=== PATIENT | male | born 1970 | race Caucasian/White ===

== ENCOUNTER 2016-11-02 10:25 | Day surgery (SDC) | payer BC ==
[2016-11-02] MEDS ORDERED: MIDAZOLAM HCL 2MG/2ML VIAL IV ONE (14:00)
[2016-11-02] MEDS ORDERED: PROPOFOL 10 MG/ML VIAL IV ONE (14:00)
[2016-11-02] MEDS ORDERED: LIDOCAINE 2% MDV (20MG/ML) 20ML VIAL IV ONE (14:00)
--- NOTE | 2016-11-06 10:34 | Operative Note ---
DATE OF SURGERY: 11/02/2016 OPERATION: COLONOSCOPY. PREOPERATIVE DIAGNOSIS: Family history of colon cancer in a second-degree relative. POSTOPERATIVE DIAGNOSIS: Sigmoid diverticulosis and anorectal nodule. PROCEDURE: After informed consent was obtained from the patient, he was placed in the left lateral decubitus position in the endoscopy suite, sedated and monitored by the department of anesthesia. Digital rectal exam revealed a small palpable nodule of unclear significance. A well-lubricated CF160 AL colonoscope was inserted into the rectum and advanced to the cecum. Preparation quality was good. The ileocecal valve, appendiceal orifice, cecal cap, ascending colon, transverse colon, and descending colon were unremarkable. The sigmoid colon revealed scattered diverticula but no inflammation or polyps or mass lesions were seen. The rectum was unremarkable in forward views. The J-turn views demonstrated an anorectal nodule perhaps indicating a hypertrophied anal papilla versus a neoplasm abnormality. The endoscope was straightened, the rectal ampulla deflated, and the endoscope was removed. RECOMMENDATIONS: The patient should follow a high-fiber diet. I would recommend a repeat exam in 10 years. In addition, I will be referring him to Colorectal Surgery for an evaluation of this nodule for possible need for removal. As always, thank you for allowing me to participate in the healthcare of your patients. CC: ARIANNA CARTWRIGHT D.O. MIKIE
== END 2016-11-02 12:42 | disposition home or self-care (01) ==
LOC: HOP 10:25
PROVIDERS: ATTEND Internal Medicine Gastroenterology
DX: Z12.11 Encounter for screening for malignant neoplasm of colon (principal); K57.30 Diverticulosis of large intestine without perforation or abscess without bleeding; K62.89 Other specified diseases of anus and rectum
CPT/HCPCS: 00810; G0121

== ENCOUNTER 2017-11-10 11:25 | Emergency (ER) | payer BC ==
[2017-11-10] MEDS ORDERED: KETOROLAC 30 MG/ML VIAL IVP ONE (11:29)
[2017-11-10] MEDS ORDERED: ONDANSETRON HCL IV 4 MG/2 ML VIAL IV ONE (11:29)
[2017-11-10 11:47] LABS: BASO % 0.1 % (0-6); EOS % 0.1 % (0-6); HEMATOCRIT 46.8 % (42.0-52.0); LYMPH % 4.2 % (16-45); MEAN CELL VOLUME 87.8 fl (81-97); MEAN CORPUSCULAR HGB CONC 34.2 g/dl (32-36); MEAN PLATELET VOLUME 8.9 fl (7.4-10.4); MONO % 2.7 % (0-9); PLATELET COUNT 298 K/uL (130-400); RED BLOOD COUNT 5.33 M/uL (4.40-5.70); RED CELL DISTRIBUTION WIDTH 12.7 % (11.5-14.5)
[2017-11-10 11:56] LABS: BLOOD UREA NITROGEN 22 mg/dL (6-20); CREATININE 1.3 mg/dL (0.7-1.2); EST GLOMERULAR FILTRATION RATE > 60 mL/min
[2017-11-10 11:59] LABS: GLUCOSE,RANDOM 130 mg/dL (74-109)
[2017-11-10 12:01] LABS: PLATELET ESTIMATE NORMAL (NORMAL)
[2017-11-10 12:02] LABS: LIPASE 19 U/L (13-60)
--- NOTE | 2017-11-10 12:04 | Emergency Department Record ---
History of Present Illness - General Stated Complaint: LT FLANK PAIN Time Seen by Provider: 11/10/17 11:29 Source: Patient Mode of Arrival: Ambulatory Limitations: No limitations - History of Present Illness Initial Comments: pt developed l flank pain that wraps around and goes to llq. he has n/v. walking seems to make it better Complaint: Abdominal pain, Flank pain -: Hour(s) Location: L Flank, LLQ Radiation: LLQ Severity: Moderate Quality: Aching, Sharp Consistency: Constant Improves With: Nothing Worsens With: Rest Associated Symptoms: Nausea, Vomiting - Related Data Previous Rx's Medication Instructions Recorded Hydrocodone/Acetaminophen [[place] 1 each PO Q6HR #12 tablet 11/10/17 5-325 Tablet] Allergies Allergy/AdvReac Type Severity Reaction Status Date / Time No Known Drug Allergies Allergy Verified 04/06/14 21:08 Review of Systems Reviewed: No additional complaints except as noted below Constitutional: Reports: As per HPI. Denies: Chills, Fever, Malaise, Night sweats, Weakness, Weight change Eyes: Reports: As per HPI. Denies: Eye discharge, Eye pain, Photophobia, Vision change ENT: Reports: As per HPI. Denies: Congestion, Dental pain, Ear pain, Epistaxis , Hearing loss, Throat pain Respiratory: Reports: As per HPI. Denies: Cough, Dyspnea, Hemoptysis, Stridor, Wheezes Cardiovascular: Reports: As per HPI. Denies: Arrhythmia, Chest pain, Dyspnea on exertion, Edema, Murmurs, Orthopnea, Palpitations, Paroxysmal nocturnal dyspnea, Rheumatic Fever, Syncope Endocrine: Reports: As per HPI. Denies: Fatigue, Heat or cold intolerance, Polydipsia, Polyuria Gastrointestinal: Reports: As per HPI. Denies: Abdominal pain, Constipation, Diarrhea, Hematemesis, Hematochezia, Melena, Nausea, Vomiting Genitourinary: Reports: As per HPI. Denies: Dysuria, Frequency, Hematuria, Incontinence, Retention, Testicular pain, Testicular mass, Urgency Musculoskeletal: Reports: As per HPI. Denies: Arthralgia, Back pain, Gout, Joint swelling, Myalgia, Neck pain Skin: Reports: As per HPI. Denies: Bruising, Change in color, Change in hair/ nails, Lesions, Pruritus, Rash Neurological: Reports: As per HPI. Denies: Abnormal gait, Confusion, Headache, Numbness, Paresthesias, Seizure, Tingling, Tremors, Vertigo, Weakness Psychiatric: Reports: As per HPI. Denies: Anxiety, Auditory hallucinations, Depression, Homicidal thoughts, Suicidal thoughts, Visual hallucinations Hematological/Lymphatic: Reports: As per HPI. Denies: Anemia, Blood Clots, Easy bleeding, Easy bruising, Swollen glands Past Medical History - SOCIAL HISTORY Smoking Status: Never smoker - RESPIRATORY Hx Respiratory Disorders: No - CARDIOVASCULAR Hx Cardio Disorders: No - NEURO Hx Neuro Disorders: Yes Hx of Migraines: Yes - GI Hx GI Disorders: No - Hx Genitourinary Disorders: No - ENDOCRINE Hx Endocrine Disorders: No - MUSCULOSKELETAL Hx Musculoskeletal Disorders: No - PSYCH Hx Psych Problems: No - HEMATOLOGY/ONCOLOGY Hx Hematology/Oncology Disorders: No Family Medical History Hx Diabetes: Grandparents Hx HTN: Mother, Grandparents Physical Exam - General General Appearance: Alert, Oriented x3, Cooperative, Mild distress - Head Head exam: Normal inspection - Eye Eye exam: Normal appearance, PERRL, EOMI Pupils: Normal accommodation - ENT ENT exam: Normal exam, Mucous membranes moist, Normal external ear exam, Normal orophraynx Ear exam: Normal external inspection. negative: External canal tenderness Nasal Exam: Normal inspection. negative: Discharge, Sinus tenderness Mouth exam: Normal external inspection, Tongue normal Teeth exam: Normal inspection. negative: Dental caries Throat exam: Normal inspection. negative: Tonsillar erythema, Tonsillar exudate - Neck Neck exam: Normal inspection, Full ROM. negative: Tenderness - Respiratory Respiratory exam: Normal lung sounds bilaterally. negative: Respiratory distress - Cardiovascular Cardiovascular Exam: Regular rate, Normal rhythm, Normal heart sounds - GI/Abdominal GI/Abdominal exam: Soft, Normal bowel sounds, Tenderness - Rectal Rectal exam: Deferred - exam: Deferred - Extremities Extremities exam: Normal inspection, Full ROM, Normal capillary refill. negative: Tenderness - Back Back exam: Reports: CVA tenderness (L), Full ROM. Denies: Muscle spasm, Rash noted, Tenderness - Neurological Neurological exam: Alert, Normal gait, Oriented X3, Reflexes normal - Psychiatric Psychiatric exam: Normal affect, Normal mood - Skin Skin exam: Dry, Intact, Normal color, Warm Course - Reevaluation(s) Reevaluation #1: 11/10/17 16:17 pt is feeling better Medical Decision Making - Lab Data Result diagrams: 11/10/17 11:41 11/10/17 15:21 Lab Results 11/10/17 Range/Units 11:41 WBC 12.0 (4.2-12.2) K/uL RBC 5.33 (4.40-5.70) M/uL Hgb 16.0 (14.0-18.0) gm/dl Hct 46.8 (42.0-52.0) % MCV 87.8 (81-97) fl MCH 30.0 (27-33) pg MCHC 34.2 (32-36) g/dl RDW 12.7 (11.5-14.5) % Plt Count 298 (130-400) K/uL MPV 8.9 (7.4-10.4) fl Lymphocytes % 4.2 L (16-45) % Monocytes % 2.7 (0-9) % Eosinophils % 0.1 (0-6) % Basophils % 0.1 (0-6) % Disposition Disposition: Discharge Clinical Impression: Renal lithiasis Hydronephrosis Qualifiers: Hydronephrosis type: with ureteral calculous obstruction Qualified Code(s): N13.2 - Hydronephrosis with renal and ureteral calculous obstruction Disposition: Home, Self-Care Condition: (1) Good Instructions: Kidney Stones (ED), Renal Colic (ED), How to Strain Your Urine ( ED) Additional Instructions: follow up with family doctor and with urologist. return sooner if worse. push fluids Prescriptions: Hydrocodone/Acetaminophen [[place] 5-325 Tablet] 1 each PO Q6HR #12 tablet Referrals: ANETTE JAIN M.D. [MEDICAL DOCTOR] - [facility] [Provider Group] Quality - Quality Measures Quality Measures: N/A - Blood Pressure Screening Does Patient Have Any of the Following: No Blood Pressure Classification: Hypertensive Reading Systolic Measurement: 164 Diastolic Measurement: 100 Screening for High Blood Pressure: < First Hypertensive BP, F/U Documented > [ [id number]] First Hypertensive Follow-up Interventions: Follow-up with rescreen GT 1 day and LT 4 weeks.
[2017-11-10] MEDS ORDERED: 0.9 % SODIUM CHLORIDE 1,000 ML BAG IV ONE (12:26)
[2017-11-10 13:37] LABS: URINE APPEARANCE CLEAR; URINE BILIRUBIN NEGATIVE (NEGATIVE); URINE BLOOD TRACE-I (NEGATIVE); URINE COLOR YELLOW; URINE GLUCOSE (UA) NEGATIVE (NEGATIVE); URINE KETONE NEGATIVE (NEGATIVE); URINE LEUKOCYTE ESTERASE NEGATIVE (NEGATIVE); URINE NITRITE NEGATIVE (NEGATIVE); URINE PROTEIN TRACE (NEGATIVE); URINE UROBILINOGEN 0.2 E.U./dL (0.20 - 1.00)
[2017-11-10 13:48] LABS: URINE EPITHELIAL CELLS 0 - 2 (FEW); URINE RBC 0 - 2 (NONE SEEN); URINE WBC 0 - 2 (0-2/hpf)
[2017-11-10 13:49] LABS: URINE BACTERIA FEW
[2017-11-10 15:54] LABS: BLOOD UREA NITROGEN 20 mg/dL (6-20); CREATININE 1.2 mg/dL (0.7-1.2); EST GLOMERULAR FILTRATION RATE > 60 mL/min
[2017-11-10 15:57] LABS: GLUCOSE,RANDOM 110 mg/dL (74-109)
--- NOTE | 2017-11-11 13:42 | CT SCAN REPORT ---
DATE: 11/10/2017. EXAM: CT OF THE ABDOMEN AND PELVIS. HISTORY: Left lower quadrant pain. TECHNIQUE: CT of the abdomen was performed without intravenous or oral contrast. COMPARISON: None. FINDINGS: There is a 2.0 mm calculus in the distal left ureter just above the left ureterovesical junction. This causes mild left hydronephrosis. There is also some enlargement of the left kidney, and left perinephric fat stranding is present. There are no other renal or ureteral calculi. The lung bases are unremarkable. The unenhanced liver and spleen are unremarkable. No pancreatic mass or inflammatory change. The bile ducts are not dilated. No calcified gallstones. No adrenal lesion. No aortic aneurysm. No periaortic mass or adenopathy. There are no dilated bowel loops. No pelvic mass, abscess, or adenopathy. No free air or free fluid. No destructive or blastic bone lesion. IMPRESSION: 1. A 2.0 MM CALCULUS IN THE DISTAL LEFT URETER CAUSING MILD LEFT HYDRONEPHROSIS. THE LEFT KIDNEY IS ENLARGED, AND THERE IS PERINEPHRIC FAT STRANDING ON THE LEFT. THIS ALL MAY BE DUE TO THE OBSTRUCTION. UNDERLYING INFECTION WOULD BE DIFFICULT TO EXCLUDE. 2. OTHERWISE UNREMARKABLE. JOB NUMBER: [id number] [facility]
== END 2017-11-10 16:47 | disposition home or self-care (01) ==
LOC: ER 11:25
DX: N13.2 Hydronephrosis with renal and ureteral calculous obstruction (principal); R11.2 Nausea with vomiting, unspecified
CPT/HCPCS: 99284 ×2; 96374; 96375; 83690; 80048; 81001; 85027; 74176; J1885; J2405; J7030

== ENCOUNTER → 2017-11-10 | Emergency (ER) | payer MEDICAID ==
[~2017-11-10] MED LIST: 0.9 % SODIUM CHLORIDE 1,000 ML BAG IV ONE; KETOROLAC 30 MG/ML VIAL IVP ONE; ONDANSETRON HCL IV 4 MG/2 ML VIAL IV ONE
== END | disposition still patient (30) ==
LOC: CANPREER → MERGE 10:32 → ER 10:32
DX: N13.2 Hydronephrosis with renal and ureteral calculous obstruction (principal); R10.32 Left lower quadrant pain; R11.2 Nausea with vomiting, unspecified